=== PATIENT | male | born 1965 | race Caucasian/White ===

== ENCOUNTER 2021-08-17 11:42 | Inpatient (IN) ==
[2021-08-17 12:40] LABS: Bilirubin,Urine Negative (Negative); Blood,Urine Negative (Negative); Clarity,Urine Clear (Clear); Color,Urine Yellow (Yellow); Glucose,Urine (UA) 30 mg/dL (Normal); Ketones,Urine Negative (Negative); Leukocyte Esterase,Urine Negative (Negative); Mucus,Urine Few per lpf (None-Few); Nitrite,Urine Negative (Negative); PH,Urine 5.5 pH Units (5.0-8.0); Protein,Urine Trace mg/dL (Neg-Trace); Specific Gravity,Urine 1.026 (1.010-1.025); Squamous Epithelial Cell,Urine Few per hpf (None-Few); Urobilinogen,Urine Normal (Normal)
[2021-08-17 12:41] LABS: Basophils # 0.1 K/mcL (0.0-0.2); Basophils % 0.6 %; Eosinophils # 0.1 K/mcL (0.0-0.6); Eosinophils % 1.4 %; Hematocrit 43.7 % (37.5-50.1); Immature Granulocytes % 0.2 % (0-4); Lymphocytes # 1.5 K/mcL (0.6-4.6); Lymphocytes % 16.7 %; Mean Corpuscular HGB Conc 34.3 g/dL (31.6-35.5); Mean Corpuscular Hemoglobin 29.9 pg (28.0-33.3); Mean Corpuscular Volume 87.2 fL (83.0-100.0); Mean Platelet Volume 9.3 fL (9.4-12.4); Monocytes # 0.4 K/mcL (0.0-1.3); Monocytes % 4.4 %; Neutrophils # 6.9 K/mcL (1.6-8.9); Platelet Count 234 K/mcL (140-400); Red Blood Count 5.01 M/mcL (4.19-5.50); Red Cell Distribution Width 11.7 % (11.5-14.5); Segmented Neutrophils % 76.7 %
[2021-08-17 12:53] LABS: Amphetamine Screen,Urine Negative ng/mL (Cutoff=1000); Barbiturate Screen,Urine Negative ng/mL (Cutoff=200); Benzodiazepines Screen,Urine Negative ng/mL (Cutoff=200); Cannabinoid Screen,Urine Negative ng/mL (Cutoff = 50); Cocaine Screen,Urine Negative ng/mL (Cutoff= 300); Opiate Screen,Urine Negative ng/mL (Cutoff=300); Phencyclidine Screen,Urine Negative ng/mL (Cutoff=25)
[2021-08-17 13:07] LABS: Acetaminophen < 10 mcg/mL (10-20); Alanine Aminotransferase 32 Units/L (7-52); Albumin 4.3 g/dL (3.5-5.7); Albumin/Globulin Ratio 1.5 (1.1-2.2); Alkaline Phosphatase 78 Units/L (34-104); Aspartate Amino Transferase 21 Units/L (13-39); BUN/Creatinine Ratio 14 (6-26); Bilirubin,Direct 0.2 mg/dL (0.0-0.2); Bilirubin,Indirect 0.5 mg/dL (0.0-1.0); Bilirubin,Total 0.7 mg/dL (0.3-1.0); Blood Urea Nitrogen 12 mg/dL (6-20); Calcium 9.1 mg/dL (8.6-10.3); Carbon Dioxide 22 mEq/L (23-29); Chloride 105 mEq/L (98-107); Chol/HDL Ratio 3.2 (0-4.9); Cholesterol 117 mg/dL (< 200); Ethanol < 10 mg/dL (Less than 10); Globulin 2.9 g/dL (2.4-3.5); Glucose 197 mg/dL (70-105); HDL Cholesterol 37 mg/dL (40-59); LDL Cholesterol,Calculated 55 mg/dL (< 100); Osmolality,Calculated 289 (280-300); Potassium 3.6 mEq/L (3.5-5.1); Salicylate < 2.5 mg/dL (15.0-30.0); Sodium 137 mEq/L (136-145); Thyroid Stimulating Hormone 0.652 mcIU/mL (0.340-5.600); Total Protein 7.2 g/dL (6.4-8.9); Triglycerides 125 mg/dL (< 150); eGFR For African Americans > 60 (> 60); eGFR For Non-African Americans > 60 (> 60)
[2021-08-17 13:41] LABS: Estimated Average Glucose 105 mg/dl; Hemoglobin A1C 5.3 %
[2021-08-17 16:07] LABS: Influenza A PCR Negative (Negative); Influenza B PCR Negative (Negative); Resp. Syncytial Virus PCR Negative (Negative)
[2021-08-17 16:08] LABS: SARS-CoV-2 by PCR (In House) Negative (Negative)
[2021-08-17] MEDS ORDERED: *HR* LORazepam 1 MG TABLET PO PRN (17:02)
[2021-08-17] MEDS ORDERED: Haloperidol Lactate 5 MG/ML VIAL IM PRN (17:02)
[2021-08-17] MEDS ORDERED: Acetaminophen 325 MG TABLET PO PRN (17:02)
[2021-08-17] MEDS ORDERED: *HR* LORazepam 2 MG/ML VIAL IM PRN (17:02)
[2021-08-17] MEDS ORDERED: haloperidoL 5 MG TABLET PO PRN (17:02)
[2021-08-17] MEDS ORDERED: Fluticasone Propionate Nasal 50 MCG/SPRAY BOTTLE NS PRN (17:04)
[2021-08-17] MEDS: traZODone 50 MG TABLET PO PRN (20:48)
[2021-08-17] MEDS: hydrOXYzine pamoate 25 MG CAPSULE PO PRN (20:49)
[2021-08-17] MEDS: lisinopriL 20 MG TABLET PO SCH (20:50)
[2021-08-18] MEDS: Metoprolol XL (24 HR) Succ 50 MG TAB.ER.24H PO SCH (10:04)
[2021-08-18] MEDS: lisinopriL 20 MG TABLET PO SCH ×2 (10:04→20:04)
[2021-08-18] MEDS: Loratadine 10 MG TABLET PO SCH (10:04)
[2021-08-18] MEDS: traZODone 50 MG TABLET PO PRN (20:04)
[2021-08-18] MEDS: hydrOXYzine pamoate 25 MG CAPSULE PO PRN (20:04)
[2021-08-19] MEDS: Metoprolol XL (24 HR) Succ 50 MG TAB.ER.24H PO SCH (08:21)
[2021-08-19] MEDS: lisinopriL 20 MG TABLET PO SCH ×2 (08:21→20:55)
[2021-08-19] MEDS: Loratadine 10 MG TABLET PO SCH (08:22)
[2021-08-19] MEDS: modafiniL 100 MG TABLET PO SCH (11:53)
[2021-08-19] MEDS: hydrOXYzine pamoate 25 MG CAPSULE PO PRN (20:55)
[2021-08-20] MEDS: Metoprolol XL (24 HR) Succ 50 MG TAB.ER.24H PO SCH (08:30)
[2021-08-20] MEDS: lisinopriL 20 MG TABLET PO SCH ×2 (08:30→20:39)
[2021-08-20] MEDS: modafiniL 100 MG TABLET PO SCH ×2 (08:30→12:26)
[2021-08-20] MEDS: Loratadine 10 MG TABLET PO SCH (08:30)
[2021-08-21] MEDS: modafiniL 100 MG TABLET PO SCH (07:57)
[2021-08-21] MEDS: lisinopriL 20 MG TABLET PO SCH (07:57)
[2021-08-21] MEDS: Metoprolol XL (24 HR) Succ 50 MG TAB.ER.24H PO SCH (07:57)
[2021-08-21] MEDS: Loratadine 10 MG TABLET PO SCH (07:58)
[2021-08-21 08:22] VITALS: BP 147/102; PULSE 75; TEMP 98.3; O2SAT 95
== END 2021-08-21 10:35 | disposition home or self-care (01) | DRG 885 ==
LOC: EMEROOARM 11:42 → 1ANU 16:23
PROVIDERS: ADMIT Psychiatry & Neurology Psychiatry; ATTEND Psychiatry & Neurology Psychiatry